=== PATIENT | male | born 1995 | race Two or more races ===

== ENCOUNTER 2021-04-12 18:00 | Emergency (ER) | payer MEDICAID, OTHER ==
[~2021-04-12] VITALS: Ht 160 cm; Wt 74.8 kg
[2021-04-12 18:21] VITALS: BP 125/76
== END 2021-04-12 18:32 | disposition left against medical advice (07) ==
LOC: ER 18:04
DX: S00.81XA Abrasion of other part of head, initial encounter (principal); X58.XXXA Exposure to other specified factors, initial encounter; Y93.89 Activity, other specified; Y92.89 Other specified places as the place of occurrence of the external cause; Y99.8 Other external cause status